=== PATIENT | female | born 1955 | race Caucasian/White ===

== ENCOUNTER → 2018-06-13 | Outpatient (CLI) | payer BC ==
--- NOTE | 2018-06-13 16:35 | PCVCIMAG ---
APPROVED REPORT Study performed: 06/13/2018 08:17:07 EXAM: Comprehensive 2D, Doppler, and color-flow Echocardiogram Patient Location: Echo lab Status: routine BSA: 1.49 HR: 55 bpmBP: 140/70 mmHg Rhythm: NSR, LBBB Other Information Study Quality: Adequate Risk Factors: Cardiac Risk Factors: HTN, Hyperlipidemia Indications Palpitations Elevated CA Score 2D Dimensions IVSd: 12.12 (7-11mm)LVOT Diam: 17.00 (18-24mm) LVDd: 40.76 mm PWd: 11.16 (7-11mm)Ascending Ao: 22.84 (22-36mm) LVDs: 31.09 (25-40mm) Left Atrium: 34.67 (27-40mm) Aortic Root: 24.01 mm LV Single Plane 4CH: 50.94 % LV Single Plane 2CH: 43.77 % Biplane EF: 44.5 % Volumes Left Atrial Volume (Systole) Single Plane 4CH: 53.27 mLSingle Plane 2CH: 41.66 mL LA ESV Index: 32.00 mL/m2 Aortic Valve AoV Peak Jeffery.: 1.37 m/s AO Peak Gr.: 7.48 mmHgLVOT Max P.46 mmHg LVOT Max V: 0.93 m/s HOSEA Vmax: 1.53 cm2 Mitral Valve E/A Ratio: 0.8 MV Decel. Time: 223.98 ms MV E Max Jeffery.: 0.93 m/s MV A Jeffery.: 1.16 m/s IVRT: 65.74 ms TDI E/Lateral E': 11.63E/Medial E': 18.60 Medial E' Jeffery.: 0.05 m/s Lateral E' Jeffery.: 0.08 m/s Pulmonary Valve PV Peak Jeffery.: 1.17 m/sPV Peak Gr.: 5.50 mmHg Pulmonary Vein P Vein S: 0.47 m/sP Vein A: 0.21 m/s P Vein D: 0.22 m/sP Vein A Dur.: 93.4 msec P Vein S/D Ratio: 2.14 Tricuspid Valve TR Peak Jeffery.: 2.21 m/sRAP Estimate: 7.00 mmHg TR Peak Gr.: 19.59 mmHg PA Pressure: 32.00 mmHg Left Ventricle The left ventricle is normal size. Mild concentric left ventricular hypertrophy. Left ventricular systolic function is mildly decreased. Discordant septal motion probably from an intraventricular conduction delay. LVEF is 50%. Mild diastolic dysfunction is present (impaired relaxation pattern). Right Ventricle The right ventricle is normal size. The right ventricular systolic function is normal. Atria The left atrium size is normal. The right atrium size is normal. Aortic Valve The aortic valve is mildly sclerotic. Trace aortic regurgitation. There is no aortic valvular stenosis. Mitral Valve Mild mitral annular calcification. Mild mitral regurgitation. No evidence of mitral valve stenosis. Tricuspid Valve The tricuspid valve is normal in structure. Trace tricuspid regurgitation. Pulmonary artery pressure is 25 mmHg. Pulmonic Valve The pulmonary valve is normal in structure. There is no pulmonic valvular regurgitation. Great Vessels The aortic root is normal in size. IVC is normal in size and collapses >50% with inspiration. Pericardium There is no pericardial effusion. <Conclusion> Left ventricular systolic function is mildly decreased. Discordant septal motion probably from an intraventricular conduction delay. LVEF is 50%. Mild diastolic dysfunction The aortic valve is mildly sclerotic. Trace aortic regurgitation, no stenosis Mild mitral annular calcification. Mild mitral regurgitation. Trace tricuspid regurgitation. Pulmonary artery pressure of 25 mmHg. There is no pericardial effusion.
== END | disposition home or self-care (01) ==
LOC: PCVCIMAG 07:53
PROVIDERS: ATTEND Internal Medicine
DX: I34.0 Nonrheumatic mitral (valve) insufficiency (principal); I25.10 Atherosclerotic heart disease of native coronary artery without angina pectoris; I44.7 Left bundle-branch block, unspecified; R00.2 Palpitations; R93.1 Abnormal findings on diagnostic imaging of heart and coronary circulation; E78.5 Hyperlipidemia, unspecified; I10 Essential (primary) hypertension
CPT/HCPCS: 93306